=== PATIENT | male | born 1945 | race African-American/Black ===

== ENCOUNTER 2017-10-12 09:39 | Emergency (ER) | payer MEDICARE, OTHER ==
[~2017-10-12] VITALS: Ht 182.9 cm; Wt 77.1 kg
[~2017-10-12 09:39] MED LIST: ACETAMINOPHEN-1 EAC1 ORAL; ANTIVERT25 MG ORAL; BRETHINE5 MG ORAL; COMBIVENT RESPIM4 GM IH; ZOCOR20 MG ORAL
[2017-10-12] MEDS ORDERED: ACETAMINOPHEN-1 EAC1 ORAL ×2 (09:54→10:32)
[2017-10-12] MEDS ORDERED: COMBIVENT RESPIM4 GM IH ×2 (09:55→10:32)
[2017-10-12 10:25] VITALS: BP 143/77
[2017-10-12 11:05] VITALS: BP 159/108
--- NOTE | 2017-10-12 19:17 | Emergency Room Report ---
History of Present Illness General Chief Complaint: Lower Back Pain or Injury Source: Patient Present Illness HPI 72 yo M hx of copd, chronic back pain, p/w medication refill. states he needs refill for his inhaler as well as his tylenol 3. denies any complaints today. has chronic back pain no worse than normal. ambulating with his walker without difficulty. no trauma. no urinary ret no weakness. denies sob Allergies: Coded Allergies: No Known Allergies (Unverified , 11/30/13) Patient History Past Medical History: see triage record Past Surgical History: none Pertinent Family History: none Reviewed Nursing Documentation: PMH: Agreed, PSxH: Agreed Nursing Documentation-PMH Hx Asthma: Yes Review of Systems All Other Systems: negative except mentioned in HPI Physical Exam Vital Signs Date Time Temp Pulse Resp B/P (MAP) Pulse Ox O2 Delivery O2 Flow Rate FiO2 10/12/17 09:49 97.9 102 19 143/77 96 Room Air Sp02 EP Interpretation: reviewed, normal General Appearance: normal inspection, well appearing, no apparent distress, alert, GCS 15, non-toxic Head: normocephalic, atraumatic Eyes: bilateral eye normal inspection, bilateral eye PERRL, bilateral eye EOMI ENT: normal ENT inspection, normal pharynx, normal voice, moist mucus membranes Neck: normal inspection, full range of motion, supple Respiratory: normal inspection, lungs clear, normal breath sounds, no respiratory distress, no retraction, no wheezing, speaking full sentences, chest symmetrical Cardiovascular #1: normal inspection, regular rate, rhythm, no edema, normal capillary refill Cardiovascular #2: 2+ radial (R), 2+ radial (L) Gastrointestinal: normal inspection, non tender, soft, non-distended, no guarding Genitourinary: no CVA tenderness Musculoskeletal: normal inspection, back normal, normal range of motion, non- tender Neurologic: normal inspection, alert, oriented x3, responsive, motor strength/ tone normal, sensory intact, normal gait, speech normal Psychiatric: normal inspection, judgement/insight normal, memory normal Skin: normal inspection, normal color, no rash, warm/dry, well hydrated, normal turgor Medical Decision Making Diagnostic Impression: Primary Impression: Medication refill ER Course 72 yo pw medication refill. no acute complaints Plan: None ER course: Patient has remained stable during ED stay. Disposition: Patient is to be discharged to home. Prescriptions given are combivent and tylenol 3 Patient is instructed to follow up with their primary care doctor within 5 days. Please note that this Emergency Department Report was dictated using [employer] programmer/app developer technology software, occasionally this can lead to erroneous entry secondary to interpretation by the dictation equipment Last Vital Signs Date Time Temp Pulse Resp B/P (MAP) Pulse Ox O2 Delivery O2 Flow Rate FiO2 10/12/17 11:05 97.9 98 18 159/108 98 Room Air Disposition: HOME, SELF-CARE Condition: Stable Scripts Acetaminophen With Codeine (T#3) (TYLENOL #3 TAB*) Y Tab 1 TAB ORAL Q8H Y for For Pain, #8 TAB 0 Refills Prov: Christy Burden M.D. 10/12/17 Ipratropium/Albuterol Sulfate (Combivent Respimat Inhal [place]) 4 Gm Mist.inhal 4 GM IH EVERY 4 HOURS, #1 TUBE 0 Refills Prov: Christy Burden M.D. 10/12/17 Referrals: NON PHYSICIAN (PCP) Patient Instructions: Medicine Refill at the Emergency Department Christy Burden M.D. Oct 12, 2017 19:17
== END 2017-10-12 11:05 | disposition home or self-care (01) ==
LOC: EMR 11:00
DX: Z76.0 Encounter for issue of repeat prescription (principal); G89.29 Other chronic pain; M54.9 Dorsalgia, unspecified; J45.909 Unspecified asthma, uncomplicated
CPT/HCPCS: 99283

== ENCOUNTER 2019-08-02 12:50 | Emergency (ER) | payer MEDICARE, OTHER ==
[~2019-08-02] VITALS: Ht 185.4 cm; Wt 74.8 kg
[2019-08-02 13:20] VITALS: BP 165/94
--- NOTE | 2019-08-02 13:23 | Emergency Room Report ---
History of Present Illness General Chief Complaint: Dyspnea/Respdistress Source: Patient Present Illness HPI 74-year-old male presents emergency department requesting medication refill for his Combivent. Patient reports he has been unable to get in with his primary care provider and therefore was not able to receive a new prescription. Patient is also reporting history of chronic back pain and inquiring if we can provide him a small quantity of Tylenol 3. Patient denies trauma or fall. Chest pain, palpitations, dyspnea, dizziness or headache. Patient reports he intermittently has shortness of breath due to COPD and his symptoms resolve after treatment with his inhaler. He denies fevers, chills, recent URI, cough or sputum production. He denies swelling of the lower extremities and denies cardiac history. Pt. denies cardiac hx. Pt. reports hx of Raynaud and high cholesterol in addition to his chronic back pain and asthma/COPD. Allergies: Coded Allergies: No Known Allergies (Unverified , 11/30/13) Patient History Past Medical History: see triage record, asthma, COPD Past Surgical History: none Reviewed Nursing Documentation: PMH: Agreed; PSxH: Agreed Nursing Documentation-PMH Past Medical History: No History, Except For Hx Asthma: Yes Review of Systems All Other Systems: negative except mentioned in HPI Physical Exam Vital Signs Date Time Temp Pulse Resp B/P (MAP) Pulse Ox O2 Delivery O2 Flow Rate FiO2 08/02/19 12:55 98.6 96 18 165/94 (117) 94 Room Air Sp02 EP Interpretation: reviewed, normal General Appearance: no apparent distress, alert, GCS 15, non-toxic Head: normocephalic, atraumatic Eyes: bilateral eye normal inspection, bilateral eye PERRL ENT: hearing grossly normal, normal voice Neck: full range of motion, other - NO JVD Respiratory: chest non-tender, lungs clear, normal breath sounds, no respiratory distress, no accessory muscle use, no wheezing, speaking full sentences Cardiovascular #1: regular rate, rhythm, no edema, normal capillary refill Cardiovascular #2: 2+ dorsalis pedis (R) - post. tibial, 2+ dorsalis pedis (L) - post tibial. Gastrointestinal: normal bowel sounds, non tender, soft, non-distended, no guarding Musculoskeletal: back normal, gait/station normal, normal range of motion, non- tender Neurologic: alert, oriented x3, responsive, motor strength/tone normal, sensory intact, normal gait, speech normal, grossly normal Psychiatric: judgement/insight normal Skin: normal color Lymphatic: no adenopathy Medical Decision Making PA Attestation Dr. Amaya is my supervising physician whom pt. management has been discussed with. Diagnostic Impression: Primary Impression: Medication refill ER Course 74-year-old male presents emergency department requesting medication refill for his Combivent. Patient reports he has been unable to get in with his primary care provider and therefore was not able to receive a new prescription. Patient is also reporting history of chronic back pain and inquiring if we can provide him a small quantity of Tylenol 3. Patient denies trauma or fall. Chest pain, palpitations, dyspnea, dizziness or headache. Patient reports he intermittently has shortness of breath due to COPD and his symptoms resolve after treatment with his inhaler. He denies fevers, chills, recent URI, cough or sputum production. He denies swelling of the lower extremities and denies cardiac history. Pt. denies cardiac hx. Pt. reports hx of Raynaud and high cholesterol in addition to his chronic back pain and asthma/COPD. Ddx considered but are not limited to: Asthma exacerbation, PNA, PE, WA,CHF just to name a few. Vital signs: are WNL, pt. is afebrile H&PE are most consistent with need for medication refill. --Patient is in no acute distress he is not showing any signs of respiratory distress, his vital signs are normal and stable. No evidence of his work of breathing. Patient is nontoxic in appearance, no physical exam signs to suspect fluid buildup in the lungs. ORDERS: none required at this time, the diagnosis is clinical ED INTERVENTIONS: None required at this time. DISCHARGE: At this time pt. is stable for d/c to home. Will provide printed patient care instructions, and any necessary prescriptions. Care plan and follow up instructions have been discussed with the patient prior to discharge. Last Vital Signs Date Time Temp Pulse Resp B/P (MAP) Pulse Ox O2 Delivery O2 Flow Rate FiO2 08/02/19 12:55 98.6 96 18 165/94 (117) 94 Room Air Disposition: HOME, SELF-CARE Condition: Stable Scripts Ipratropium/Albuterol Sulfate (Combivent Respimat Inhal [place]) 4 Gm Mist.inhal 4 GM IH Q4HR, #4 GM 2 Refills Prov: Amna Weldon 08/02/19 Patient Instructions: Medicine Refill at the Emergency Department Additional Instructions: Take medications as directed. Follow up with a Primary Care Provider in 3-5 days, even if your symptoms have resolved. Return sooner to ED if new symptoms occur, or current symptoms become worse. - Please note that this Emergency Department Report was dictated using [employer] cardiac cath technology software, occasionally this can lead to erroneous entry secondary to interpretation by the dictation equipment. Amna Weldon Aug 02, 2019 13:23
[2019-08-02] MEDS ORDERED: COMBIVENT RESPIM4 GM IH (13:24)
--- NOTE | 2019-08-02 13:30 | NUR ---
Patient arrived to ED by bus stating he is out of comvbivent. He stated he was short of breath this AM at home. Currently VSS. Patient on ekg monitor tech, bed in lowest position.
[2019-08-02 14:45] VITALS: BP 152/88
--- NOTE | 2019-08-02 14:45 | NUR ---
ER DISCHARGE NOTE: Patient is cleared to be discharged per ERMD, pt is aox4, on room air, with stable vital signs. pt was given dc and prescription instructions, pt was able to verbalize understanding, pt id band removed without complications. pt is able to ambulate with steady gait. pt took all belongings.
== END 2019-08-02 14:45 | disposition home or self-care (01) ==
LOC: EMR 13:45
DX: J44.9 Chronic obstructive pulmonary disease, unspecified (principal); Z76.0 Encounter for issue of repeat prescription; Z79.51 Long term (current) use of inhaled steroids; E78.00 Pure hypercholesterolemia, unspecified; I73.00 Raynaud's syndrome without gangrene; G89.29 Other chronic pain; M54.9 Dorsalgia, unspecified
CPT/HCPCS: 99282

== ENCOUNTER 2020-09-16 13:18 | Emergency (ER) | payer MEDICARE, OTHER ==
[~2020-09-16] VITALS: Ht 185.4 cm; Wt 74.8 kg
[2020-09-16] MEDS ORDERED: ZOCOR20 MG ORAL (13:44)
[2020-09-16] MEDS ORDERED: COMBIVENT RESPIM4 GM IH (13:44)
[2020-09-16] MEDS ORDERED: MECLIZINE HCL25 MG ORAL (13:44)
--- NOTE | 2020-09-16 13:48 | Emergency Room Report ---
History of Present Illness General Chief Complaint: Medication Refill Source: Patient Present Illness HPI Disclaimer: Please note that this report is being documented using [employer] technology. This can lead to erroneous entry secondary to incorrect interpretation by the dictating instrument. HPI: 75-year-old male history of COPD presents requesting medication refills. Patient states he ran out of the Combivent inhaler 1 week ago. He denies significant shortness of breath at this time. He is also requesting a medication refill of his simvastatin, meclizine and Tylenol 3 which he takes for chronic back pain. He states he was unable to see his PMD. He denies fever, chills, cough, congestion, sore throat, chest pain, palpitations, shortness of breath, nausea, vomiting, diarrhea or other changes in his health at this time. PMH: COPD, chronic back pain, vertigo, hyperlipidemia PSH: Reviewed Allergies: Denied Social Hx: Reviewed Allergies: Coded Allergies: No Known Allergies (Unverified , 11/30/13) COVID-19 Screening Contact w/high risk pt: No Experienced COVID-19 symptoms?: No COVID-19 Testing performed NURSE OFFICE: No Nursing Documentation-PMH Hx Asthma: Yes Review of Systems All Other Systems: negative except mentioned in HPI Physical Exam Vital Signs Date Time Temp Pulse Resp B/P (MAP) Pulse Ox O2 Delivery O2 Flow Rate FiO2 09/16/20 13:23 98.4 91 19 143/87 (105) 98 Room Air General: Awake and alert, no acute distress HEENT: NC/AT. EOMI. Cardiovascular: RRR. S1 and S2 normal. No murmur appreciated Resp: Normal work of breathing. No cough, wheezing or crackles appreciated Skin: Intact. No abrasions, laceration or rash over the exposed skin MSK: Normal tone and bulk. Moving all extremities. No obvious deformity. Neuro: Awake and alert. Mentating appropriately. Medical Decision Making Diagnostic Impression: Primary Impression: Medication refill ER Course 75-year-old male presents requesting refill of his medications including Combivent, meclizine, simvastatin and Tylenol 3. States he was unable to see his PMD but denying respiratory distress, wheezing, shortness of breath at this time. No recent signs of infection. He is otherwise well-appearing. Does not appear to require emergent intervention, labs, imaging or breathing treatments at this time. I explained to him that his chronic medications need to be refilled by his PMD though given the COVID-19 pandemic it is difficult to see his PMD and therefore I will refill his Combivent, simvastatin, meclizine, told him that his Tylenol threes could not be filled in the ER. Patient is appreciative and stable for outpatient follow-up. Discussed reasons to return to ED. He understands and agrees with this treatment plan. Last Vital Signs Date Time Temp Pulse Resp B/P (MAP) Pulse Ox O2 Delivery O2 Flow Rate FiO2 09/16/20 13:23 98.4 91 19 143/87 (105) 98 Room Air Disposition: HOME, SELF-CARE Condition: Stable Scripts Meclizine Hcl* (MECLIZINE*) 25 Mg Tablet 25 MG ORAL THREE TIMES A DAY, #20 TAB Prov: Satya Butler MD 09/16/20 Ipratropium/Albuterol Sulfate (Combivent Respimat Inhal [place]) 4 Gm Mist.inhal 4 GM IH Q4HR, #4 GM 2 Refills Prov: Satya Butler MD 09/16/20 Simvastatin (ZOCOR) 20 Mg Tablet 20 MG ORAL BEDTIME for 30 Days, #30 TAB Prov: Satya Butler MD 09/16/20 Referrals: [facility] Patient Instructions: Medicine Refill at the Emergency Department Additional Instructions: Please follow-up with your primary care doctor in the next 1 to 3 days to discuss this emergency department visit and for reevaluation. If you have any new or worsening symptoms please return to the emergency department for reevaluation. Please note that this report is being documented using [employer] technology. This can lead to erroneous entry secondary to incorrect interpretation by the dictating instrument. Satya Butler MD Sep 16, 2020 13:48
--- NOTE | 2020-09-16 13:53 | NUR ---
ED Nurse Note: Pt cleared by health care Provider for discharge. DC instructions/prescription was given and explained to pt and verbalized understanding of teachings. All medical deviecs such as ID band removed. Pt is AAO x4, ambulatory and left with all personal belongings.
[2020-09-16 14:51] VITALS: BP 143/87
== END 2020-09-16 13:53 | disposition home or self-care (01) ==
LOC: EMR 13:50
DX: Z76.0 Encounter for issue of repeat prescription (principal); J44.9 Chronic obstructive pulmonary disease, unspecified; E78.5 Hyperlipidemia, unspecified
CPT/HCPCS: 99282

== ENCOUNTER 2020-11-19 13:48 | Emergency (ER) | payer MEDICARE, OTHER ==
[~2020-11-19] VITALS: Ht 185.4 cm; Wt 79.4 kg
[~2020-11-19 13:48] MED LIST changes: +MECLIZINE HCL25 MG ORAL
[2020-11-19] MEDS ORDERED: ZOCOR20 MG ORAL (14:10)
[2020-11-19] MEDS ORDERED: MECLIZINE HCL25 MG ORAL (14:10)
[2020-11-19] MEDS ORDERED: COMBIVENT RESPIM4 GM IH (14:10)
--- NOTE | 2020-11-19 14:10 | NUR ---
ED Nurse Note:pt. came from home with c/o chronic pain and meds refill
--- NOTE | 2020-11-19 14:11 | Emergency Room Report ---
History of Present Illness General Chief Complaint: Pain Source: Patient Present Illness HPI Disclaimer: Please note that this report is being documented using [employer] technology. This can lead to erroneous entry secondary to incorrect interpretation by the dictating instrument. HPI: 75-year-old male presents requesting medication refill. He was referred to the [facility] and has an appointment on November 29 but states he is running short of his Combivent, simvastatin and meclizine which he takes for disequilibrium. Requesting for prescription to bridge him until he can see his new PMD. No other complaints at this time. Denies fever, chills, shortness of breath, abdominal pain, nausea, vomiting. PMH: Reviewed PSH: Reviewed Allergies: Reviewed Social Hx: Reviewed Allergies: Coded Allergies: No Known Allergies (Unverified , 11/30/13) COVID-19 Screening Contact w/high risk pt: No Experienced COVID-19 symptoms?: No COVID-19 Testing performed BOTTOM FILLER: Yes COVID-19 Screening: Negative COVID-19 COVID-19 Testing Source: nasal Nursing Documentation-PMH Past Medical History: No History, Except For Hx Asthma: Yes Review of Systems All Other Systems: negative except mentioned in HPI Physical Exam Vital Signs Date Time Temp Pulse Resp B/P (MAP) Pulse Ox O2 Delivery O2 Flow Rate FiO2 11/19/20 13:54 98.1 100 18 140/89 (106) 95 Room Air General: Awake and alert, no acute distress HEENT: NC/AT. EOMI. Resp: Normal work of breathing Skin: Intact. No abrasions, laceration or rash over the exposed skin MSK: Normal tone and bulk. Moving all extremities. No obvious deformity. Neuro: Awake and alert. Mentating appropriately Medical Decision Making Diagnostic Impression: Primary Impression: Medication refill ER Course 75-year-old male presents requesting medication refill. We will refill his meclizine, Combivent and simvastatin. Also requesting Tylenol 3's for chronic pain but these he can obtain from his new PMD. No new injury or other concerns at this time. Otherwise well-appearing stable for outpatient follow-up. Instructed to return to ER with new or worsening symptoms. Last Vital Signs Date Time Temp Pulse Resp B/P (MAP) Pulse Ox O2 Delivery O2 Flow Rate FiO2 11/19/20 13:54 98.1 100 18 140/89 (106) 95 Room Air Disposition: HOME, SELF-CARE Condition: Stable Scripts Meclizine Hcl* (MECLIZINE*) 25 Mg Tablet 25 MG ORAL THREE TIMES A DAY, #20 TAB Prov: Satya Butler MD 11/19/20 Ipratropium/Albuterol Sulfate (Combivent Respimat Inhal [place]) 4 Gm Mist.inhal 4 GM IH Q4HR, #4 GM 2 Refills Prov: Satya Butler MD 11/19/20 Simvastatin (ZOCOR) 20 Mg Tablet 20 MG ORAL BEDTIME for 30 Days, #30 TAB Prov: Satya Butler MD 11/19/20 Additional Instructions: Please follow-up with your primary care doctor in the next 1 to 3 days to discuss this emergency department visit and for reevaluation. If you have any new or worsening symptoms please return to the emergency department for reevaluation. Please note that this report is being documented using [employer] technology. This can lead to erroneous entry secondary to incorrect interpretation by the dictating instrument. Satya Butler MD Nov 19, 2020 14:11
[2020-11-19 14:19] VITALS: BP 140/78
[2020-11-19 14:21] VITALS: BP 140/78
== END 2020-11-19 14:20 | disposition home or self-care (01) ==
LOC: EMR 14:04
DX: Z76.0 Encounter for issue of repeat prescription (principal); G89.29 Other chronic pain
CPT/HCPCS: 99282